=== PATIENT | female | born 1975 | race Caucasian/White ===

== ENCOUNTER → 2016-04-02 | Outpatient (CLI) | payer MEDICARE, MEDICAID | LOC: RAD 12:19 | DX: M25.511 Pain in right shoulder (principal); M75.101 Unspecified rotator cuff tear or rupture of right shoulder, not specified as traumatic; R07.9 Chest pain, unspecified | CPT/HCPCS: 71020 ==

== ENCOUNTER → 2016-04-11 | Day surgery (SDC) | payer MEDICARE, MEDICAID ==
[~2016-04-11] MED LIST: LIDOCAINE 1% INJ-PF (10 MG/ML) 30 ML SDV ONE
== END ==
LOC: RAD 12:20
PROC: BP08ZZZ Plain Radiography of Right Shoulder (ICD-10-PCS; principal; 2016-04-11)
DX: M25.511 Pain in right shoulder (principal); S43.431A Superior glenoid labrum lesion of right shoulder, initial encounter; X58.XXXA Exposure to other specified factors, initial encounter; M75.91 Shoulder lesion, unspecified, right shoulder
CPT/HCPCS: 73222; 73040; 77002; A9576; J3490

== ENCOUNTER → 2016-05-26 | Outpatient (CLI) | payer MEDICARE, MEDICAID ==
[2016-05-26 12:20] LABS: ABSOLUTE EOSINOPHILS # (AUTO) 0.2 10^3/uL (0.0-0.6); ABSOLUTE LYMPHOCYTES (AUTO) 1.5 10^3/uL (0.5-4.7); ABSOLUTE MONOCYTES (AUTO) 0.4 10^3/uL (0.1-1.4); ABSOLUTE NEUT (AUTO) 2.7 10^3/uL (1.7-8.2); BASOPHILS % (AUTO) 0.5 % (0-2); EOSINOPHILS % (AUTO) 3.2 % (0-6); HEMATOCRIT 40.8 % (36.0-47.0); HEMOGLOBIN 13.8 g/dL (12.0-15.5); HGB HCT DIFFERENCE 0.6; LYMPHOCYTES % (AUTO) 32.1 % (13-45); MEAN CORPUSCULAR HEMOGLOBIN 30.3 pg (27.0-33.4); MEAN CORPUSCULAR HGB CONC 33.8 g/dL (32.0-36.0); MEAN CORPUSCULAR VOLUME 90 fl (80-97); MONOCYTES % (AUTO) 9.1 % (3-13); RED BLOOD COUNT 4.55 10^6/uL (3.72-5.28); RED CELL DISTRIBUTION WIDTH 13.2 % (11.5-14.0); SEGMENTED NEUTROPHILS % (AUTO) 55.1 % (42-78); WHITE BLOOD COUNT 4.8 10^3/uL (4.0-10.5)
[2016-05-26 12:35] LABS: APPEARANCE,URINE CLEAR; BILIRUBIN,URINE NEGATIVE (NEGATIVE); GLUCOSE, URINE NEGATIVE (NEGATIVE); KETONES,URINE NEGATIVE (NEGATIVE); LEUKOCYTE ESTERASE,URINE NEGATIVE (NEGATIVE); NITRITE,URINE NEGATIVE (NEGATIVE); PROTEIN,URINE NEGATIVE (NEGATIVE); URINE SPECIFIC GRAVITY 1.023; UROBILINOGEN,URINE NEGATIVE mg/dL (<2.0)
[2016-05-26 12:46] LABS: ALANINE AMINOTRANSFERASE 19 U/L (9-52); ALBUMIN 4.3 g/dL (3.5-5.0); ALKALINE PHOSPHATASE 66 U/L (38-126); ANION GAP 12 (5-19); ASPARTATE AMINO TRANSFERASE 16 U/L (14-36); BILIRUBIN,TOTAL 0.9 mg/dL (0.2-1.3); BLOOD UREA NITROGEN 13 mg/dL (7-20); CALCIUM 9.3 mg/dL (8.4-10.2); CARBON DIOXIDE 26 mmol/L (22-30); CHLORIDE 102 mmol/L (98-107); CHOLESTEROL 177.87 mg/dL (0-200); CREATININE RESULT 0.61 mg/dL (0.52-1.25); Direct HDL 80 mg/dL (>40); GLUCOSE 91 mg/dL (75-110); POTASSIUM 4.2 mmol/L (3.6-5.0); SODIUM 139.5 mmol/L (137-145); TRIGLYCERIDES 55 mg/dL (<150)
[2016-05-26 12:56] LABS: DIRECT LDL 82 mg/dL (<100)
== END ==
LOC: OD 10:35
DX: M32.9 Systemic lupus erythematosus, unspecified (principal); L11.1 Transient acantholytic dermatosis [Grover]; R53.82 Chronic fatigue, unspecified; E53.9 Vitamin B deficiency, unspecified; E55.9 Vitamin D deficiency, unspecified; Z79.899 Other long term (current) drug therapy; Z91.018 Allergy to other foods
CPT/HCPCS: 36415; 80053; 80061; 81001; 82306; 82607; 83036; 84207; 84252; 84425; 84443; 84591; 85025

== ENCOUNTER → 2016-05-29 | Outpatient (CLI) | payer MEDICARE, MEDICAID | LOC: RAD 09:03 | DX: M32.9 Systemic lupus erythematosus, unspecified (principal); M50.20 Other cervical disc displacement, unspecified cervical region | CPT/HCPCS: 72156; A9577 ==

== ENCOUNTER → 2016-06-06 | Outpatient (CLI) | payer MEDICARE, MEDICAID | LOC: OD 11:20 | DX: D3A.090 Benign carcinoid tumor of the bronchus and lung (principal); R23.2 Flushing | CPT/HCPCS: 36415; 71020; 82382; 82570; 83497; 83520; 84443 ==

== ENCOUNTER → 2016-07-02 | Outpatient (CLI) | payer MEDICARE, MEDICAID | LOC: WI 10:50 | DX: M50.20 Other cervical disc displacement, unspecified cervical region (principal); N63 Unspecified lump in breast; Z53.8 Procedure and treatment not carried out for other reasons ==

== ENCOUNTER 2016-07-04 12:20 | Emergency (ER) | payer MEDICARE, MEDICAID ==
[2016-07-04 12:33] VITALS: BP 138/98
--- NOTE | 2016-07-04 12:54 | ER Document Report ---
ED Skin Rash/Insect Bite/Abscs - General Chief Complaint: Itching Stated Complaint: FACIAL ITCHING Time seen by provider: 12:49 Mode of Arrival: Ambulatory Information source: Patient Notes: 40-year-old female presents to ED for facial flushing for several months. She states that her face is been itching for week. Lupus and One-A-Day with lamp to see if she had any fungus on her face. TRAVEL OUTSIDE OF THE [place] IN LAST 30 DAYS: No - HPI Patient complains to provider of: Other - Itching to bilateral sides of face Onset: Last week Onset/Duration: Intermittent Quality of pain: No pain Severity: None Pain Level: Denies Skin Character: Other - Flushing to face Quality of rash: Itchy Identify cause: No - could be from her lupus Exacerbated by: Denies Relieved by: Denies Similar symptoms previously: Yes Recently seen / treated by doctor: Yes - Related Data Allergies/Adverse Reactions: Penicillins Allergy (Verified 01/27/16 11:16) Anaphylaxis Sulfa (Sulfonamide Antibiotics) Allergy (Verified 01/27/16 11:16) sulfamethoxazole [From Septra] Allergy (Verified 01/27/16 11:16) Anaphylaxis trazodone Allergy (Verified 01/27/16 11:16) trimethoprim [From Septra] Allergy (Verified 01/27/16 11:16) Anaphylaxis Past Medical History - General Information source: Patient - Social History Smoking Status: Never Smoker Cigarette use (# per day): No Chew tobacco use (# tins/day): No Smoking Education Provided: No Frequency of alcohol use: Rare Drug Abuse: None Occupation: none Lives with: Family Family History: CAD, Hyperlipidemia, Hypertension Patient has suicidal ideation: No Patient has homicidal ideation: No - Past Medical History Cardiac Medical History: Reports: Hx Hypertension Pulmonary Medical History: Reports: Hx Asthma EENT Medical History: Reports: None Neurological Medical History: Reports: Hx Migraine, Hx Seizures Endocrine Medical History: Reports: Hx Graves' Disease, Other - Lupus Renal/ Medical History: Reports: Hx Ovarian Cysts, Other - Interstitial cystitis Malignancy Medical History: Reports: None GI Medical History: Reports: Hx Irritable Bowel, Hx Colonoscopy, Hx Endoscopy, Other - Multiple episodes of small intestine bacterial overgrowth Musculoskeltal Medical History: Reports Hx Fibromyalgia, Reports Hx Musculoskeletal Deformity - Carpal tunnel "slipped disc" with radiculopathy, Reports Hx Musculoskeletal Trauma Skin Medical History: Reports Hx Cellulitis Psychiatric Medical History: Reports: Hx Anxiety, Hx Attention Deficit Hyperactivity Disorder, Hx Post Traumatic Stress Disorder Traumatic Medical History: Reports: None Infectious Medical History: Reports: None Past Surgical History: Reports: Hx Genitourinary Surgery - Bladder hyperextended due to interstitial cystitis, Hx Gynecologic Surgery - left ovary removed, Hx Orthopedic Surgery - Carpal tunnel surgery today for 7 2016 has had previous surgery on this lee, Hx Urinary Tract Surgery - hyperextention of bladder - Immunizations Immunizations up to date: Yes Hx Diphtheria, Pertussis, Tetanus Vaccination: Yes Review of Systems - Review of Systems Constitutional: No symptoms reported EENT: Other - Itching to face Cardiovascular: No symptoms reported Respiratory: No symptoms reported Gastrointestinal: No symptoms reported Genitourinary: No symptoms reported Female Genitourinary: No symptoms reported Musculoskeletal: No symptoms reported Skin: Other - Itching to face no rash noted Hematologic/Lymphatic: No symptoms reported Neurological/Psychological: No symptoms reported -: Yes All other systems reviewed and negative Physical Exam - Vital signs Vitals: Temp Pulse Resp BP Pulse Ox 98.3 F 86 16 138/98 H 99 07/04/16 12:25 07/04/16 12:25 07/04/16 12:25 07/04/16 12:25 07/04/16 12:25 Interpretation: Normal - General General appearance: Appears well, Alert - HEENT Head: Normocephalic, Atraumatic Eyes: Normal Pupils: PERRL Notes: Itching to face no rash noted, no fungal showing up on the wood lamp that was used as her request. - Respiratory Respiratory status: No respiratory distress Chest status: Nontender Breath sounds: Normal Chest palpation: Normal - Cardiovascular Rhythm: Regular Heart sounds: Normal auscultation Murmur: No - Abdominal Inspection: Normal Distension: No distension Bowel sounds: Normal Tenderness: Nontender Organomegaly: No organomegaly - Back Back: Normal, Nontender - Extremities General upper extremity: Normal inspection, Nontender, Normal color, Normal ROM , Normal temperature General lower extremity: Normal inspection, Nontender, Normal color, Normal ROM , Normal temperature, Normal weight bearing. No: Rubén's sign - Neurological Neuro grossly intact: Yes Cognition: Normal Orientation: AAOx4 M[place]or Coma Scale Eye Opening: Spontaneous [place] Coma Scale Verbal: Oriented [place] Coma Scale Motor: Obeys Commands Mynor Coma Scale Total: 15 Speech: Normal Motor strength normal: LUE, RUE, LLE, RLE Sensory: Normal - Psychological Associated symptoms: Normal affect, Normal mood - Skin Skin Temperature: Warm Skin Moisture: Dry Skin Color: Normal Course - Re-evaluation Re-evalutation: 07/04/16 12:58 Patient was examined with a with life with no signs of any fungal infection so was her chest. Patient encouraged to use Benadryl for the itching and to follow -up with rheumatology and dermatology for her itching to the face. She states the flesh and has been going on for several months and the itching started over a week ago. She has already spoken with her primary doctor who told her to go to dermatology or rheumatology. - Vital Signs Vital signs: Temp Pulse Resp BP Pulse Ox 98.3 F 86 16 138/98 H 99 07/04/16 12:25 07/04/16 12:25 07/04/16 12:25 07/04/16 12:25 07/04/16 12:25 Discharge - Discharge Clinical Impression: Facial twitching, History of lupus Condition: Stable Disposition: HOME, SELF-CARE Additional Instructions: you were seen today for facial itching. The Rico lamp did not show any fungal infection. You have a history of lupus. Take your medications as prescribed for her lupus. Please call your [employer] to schedule follow-up visit for these symptoms. You can also call dermatology to see if you're having any other kind of reaction. Diphenhydramine The use of diphenhydramine (Benadryl) has been recommended to control allergic symptoms. The 25 mg strength is available over- the-counter, as well as the elixir. This antihistamine is used for many symptoms. It's useful for itching, watering eyes and nose, allergic swelling, hives, and insect stings. The medication can be repeated four times daily. Age Elixir (12.5 mg/tsp) 25 mg pill 1 yr 1/4 tsp 2-3 yr 1/2 tsp 4-8 yr 1 tsp 9-14 yr 2 tsp one tab adult 1-2 tabs Antihistamines may cause drowsiness, especially with the first dose. Do not operate machinery or drive while under the effects of the medication. Do not combine the medication with alcohol, or with any other medication without talking to your doctor. FOLLOW-UP CARE: If you have been referred to a physician for follow-up care, call the physician s office for an appointment as you were instructed or within the next two days. If you experience worsening or a significant change in your symptoms, notify the physician immediately or return to the Emergency Department at any time for re-evaluation. Please complete the patient's satisfaction survey if you get one and return. If you do not receive a survey you can go to [facility] website [email or web address] and placed her comments about your very good care. Thank you very much. It was a pleasure be in your medical provider today. Forms: Elevated Blood Pressure
== END 2016-07-04 13:01 | disposition home or self-care (01) ==
LOC: ER 12:20
DX: L29.9 Pruritus, unspecified (principal); R25.3 Fasciculation; I10 Essential (primary) hypertension; J45.909 Unspecified asthma, uncomplicated; Z88.0 Allergy status to penicillin; Z88.2 Allergy status to sulfonamides
CPT/HCPCS: 99282

== ENCOUNTER 2016-07-10 18:53 | Emergency (ER) | payer MEDICARE, MEDICAID ==
--- NOTE | 2016-07-10 20:16 | ER Document Report ---
ED Skin Rash/Insect Bite/Abscs - General Chief Complaint: Itching Stated Complaint: ITCHY FACE Mode of Arrival: Ambulatory Information source: Patient Notes: 40-year-old female presents to the emergency department complaining of intermittently persistent itching to the face and upper anterior chest for approximately last 3 weeks. Patient reports itching seems to be triggered by an made worse after exposure to sunlight however persists regardless of exposure. States has been evaluated in the emergency department, as well as dermatology and rheumatology but symptoms are persistent. Denies fever, lesions , drainage, swelling, color changes, warmth, or any other systemic symptoms. Cannot recall obvious exposure to allergen. TRAVEL OUTSIDE OF THE [place] IN LAST 30 DAYS: No - HPI Onset/Duration: Intermittent, Persistent Quality of pain: No pain, Other - Itching Severity: Moderate Skin Character: No: Blanching, Bullous, Drainage, Erythema, Lesion, Macules, Papules, Patchy, Petechial, Rash, Scales, Swelling, Tenderness, Thickening, Urticarial, Vesicular Quality of rash: Itchy Similar symptoms previously: Yes Recently seen / treated by doctor: Yes - Related Data Allergies/Adverse Reactions: Penicillins Allergy (Verified 01/27/16 11:16) Anaphylaxis Sulfa (Sulfonamide Antibiotics) Allergy (Verified 01/27/16 11:16) sulfamethoxazole [From Septra] Allergy (Verified 01/27/16 11:16) Anaphylaxis trazodone Allergy (Verified 01/27/16 11:16) trimethoprim [From Septra] Allergy (Verified 01/27/16 11:16) Anaphylaxis Past Medical History - General Information source: Patient - Social History Smoking Status: Never Smoker Chew tobacco use (# tins/day): No Frequency of alcohol use: None Drug Abuse: None Lives with: Family Family History: CAD, Hyperlipidemia, Hypertension - Past Medical History Cardiac Medical History: Reports: Hx Hypertension Pulmonary Medical History: Reports: Hx Asthma Neurological Medical History: Reports: Hx Migraine, Hx Seizures Endocrine Medical History: Reports: Hx Graves' Disease Renal/ Medical History: Reports: Hx Ovarian Cysts, Other - Interstitial cystitis. Denies: Hx Peritoneal Dialysis GI Medical History: Reports: Hx Irritable Bowel, Hx Colonoscopy, Hx Endoscopy Musculoskeltal Medical History: Reports Hx Fibromyalgia, Reports Hx Musculoskeletal Deformity - Carpal tunnel "slipped disc" with radiculopathy, Reports Hx Musculoskeletal Trauma Skin Medical History: Reports Hx Cellulitis Psychiatric Medical History: Reports: Hx Anxiety, Hx Attention Deficit Hyperactivity Disorder, Hx Post Traumatic Stress Disorder Past Surgical History: Reports: Hx Genitourinary Surgery - Bladder hyperextended due to interstitial cystitis, Hx Gynecologic Surgery - left ovary removed, Hx Orthopedic Surgery - Carpal tunnel surgery today for 7 2016 has had previous surgery on this lee, Hx Urinary Tract Surgery - hyperextention of bladder - Immunizations Immunizations up to date: Yes Hx Diphtheria, Pertussis, Tetanus Vaccination: Yes Review of Systems - Review of Systems Constitutional: No symptoms reported EENT: No symptoms reported Cardiovascular: No symptoms reported Respiratory: No symptoms reported Gastrointestinal: No symptoms reported Genitourinary: No symptoms reported Female Genitourinary: No symptoms reported Musculoskeletal: No symptoms reported Skin: See HPI Hematologic/Lymphatic: No symptoms reported Neurological/Psychological: No symptoms reported -: Yes All other systems reviewed and negative Physical Exam - Vital signs Vitals: Temp Pulse Resp BP Pulse Ox 98.5 F 78 18 135/84 H 99 07/10/16 18:55 07/10/16 18:55 07/10/16 18:55 07/10/16 18:55 07/10/16 18:55 - General General appearance: Appears well, Alert In distress: None - HEENT Head: Normocephalic, Atraumatic. No: Abrasions, Castañeda's sign, Ecchymosis, Open wounds, [place]'s eyes, Tenderness, Other Eyes: Normal Conjunctiva: Normal Extraocular movements intact: Yes Eyelashes: Normal Pupils: PERRL Nerve palsy: No Ears: Normal External canal: Normal Tympanic membrane: Normal Sinus: Normal Nasal: Normal Mouth/Lips: Normal Mucous membranes: Normal, Moist Pharynx: Normal. No: Blood in hypopharynx, Erythema, Exudate, Peritonsillar abscess, Post nasal drainage, Retropharyngeal abscess, Tonsillar hypertrophy, Uvular edema, Potential airway comprom., Other Neck: Normal. No: Anterior cervical chain, Posterior cervical chain, Lymphadenopathy, Meningismus, Subcutaneous emphysema - Respiratory Respiratory status: No respiratory distress Chest status: Nontender Breath sounds: Normal Chest palpation: Normal - Cardiovascular Rhythm: Regular Heart sounds: Normal auscultation Murmur: No Pulses: Normal: Radial Normal capillary refill: Yes - Abdominal Inspection: Normal Distension: No distension Bowel sounds: Normal Tenderness: Nontender Organomegaly: No organomegaly - Back Back: Normal, Nontender - Extremities General upper extremity: Normal inspection, Nontender, Normal color, Normal ROM , Normal strength, Normal temperature General lower extremity: Normal inspection, Nontender, Normal color, Normal ROM , Normal strength, Normal temperature, Normal weight bearing - Neurological Neuro grossly intact: Yes Cognition: Normal Orientation: AAOx4 Mynor Coma Scale Eye Opening: Spontaneous [place] Coma Scale Verbal: Oriented [place] Coma Scale Motor: Obeys Commands Mynor Coma Scale Total: 15 Speech: Normal Motor strength normal: LUE, RUE, LLE, RLE Sensory: Normal - Skin Skin Temperature: Warm Skin Moisture: Dry Skin Color: Normal Course - Re-evaluation Re-evalutation: 07/10/16 20:30 Patient hemodynamically stable, in no distress. Patient is very well-appearing with unremarkable physical exam including Rico lamp examination without suggestion of fungal or other significant systemic or dermatologic etiology at this time. Will treat symptomatically and encourage patient to follow-up with dermatology and pcp. Patient appears stable for discharge and agrees with home care, follow-up, and ED return precautions. - Vital Signs Vital signs: Temp Pulse Resp BP Pulse Ox 98.6 F 76 16 132/80 H 99 07/10/16 20:25 07/10/16 20:25 07/10/16 20:25 07/10/16 20:25 07/10/16 20:25 Discharge - Discharge Clinical Impression: Rash and nonspecific skin eruption Condition: Stable Disposition: HOME, SELF-CARE Additional Instructions: Itching Itching can be a symptom of both skin problems or internal diseases. Most of the time, itching is simply a nuisance, and doesn't mean there's any serious underlying problem. If there are no symptoms of an ongoing medical condition, we simply prescribe anti-itch medicine to relieve symptoms. Itching can be due to skin allergic reactions such as poison oak, poison geo, dermatitis, or jewelry allergy. It can be caused by dry skin, or skin that' s been stretched by , weight gain, or water retention. It can be caused by skin parasites such as scabies, or by bug bites. Itching can be caused by internal allergy, such as food allergy, or medication allergy, or intestinal parasites. It can accompany liver disease. Apply a non-perfumed ointment like Vaseline, Eucerin lotion, Nutraderm, or Lubriderm if your skin is dry. Apply frequently, especially after bathing. Benadryl, Hydroxyzine, Doxepin and other anti-itch medicines can help control the urge to scratch. Hydrocortisone cream, or a prescription steroid cream or ointment can help reduce inflammation. Avoid hot baths or showers. Use as little soap as possible while bathing. Don't scrub your skin unless the doctor has specifically told you to do this. Call the doctor or return if there are signs of infection, fever, pain, or if symptoms become severe. Acid-Suppressing Medication You may try taking [id number] medicine which reduces the stomach's secretion of acid. Examples include These medications sometimes are used for allergic reactions because they have anti-histaminic effects and relieve the rash and itching of the reaction. There are usually no side effects from this medication. But, in rare cases and particularly in the elderly, serious problems can occur. Contact your doctor if there is fever, rash, hallucinations, confusion, or unusual bruising. Contact your doctor at once if you develop lightheadedness, black or bloody stool, or bloody vomitus. Follow-up with your primary care provider and dermatology this week. Return to the Emergency Department for any worsening symptoms or concerns. Prescriptions: Hydroxyzine HCl [Atarax 25 mg Tablet] 1 tab PO BIDP PRN #10 tablet PRN Reason: Forms: Elevated Blood Pressure Referrals: NIXON WONG DO [ACTIVE STAFF] - Follow up in 3-5 days
[2016-07-10 20:32] VITALS: BP 132/80
== END 2016-07-10 20:25 | disposition home or self-care (01) ==
LOC: ER 18:53
DX: L29.9 Pruritus, unspecified (principal); R21 Rash and other nonspecific skin eruption; I10 Essential (primary) hypertension; Z88.0 Allergy status to penicillin; Z88.2 Allergy status to sulfonamides; Z88.3 Allergy status to other anti-infective agents
CPT/HCPCS: 99282

== ENCOUNTER 2016-11-10 11:42 | Day surgery (SDC) | payer MEDICARE, MEDICAID ==
[2016-11-10] MEDS ORDERED: DIPHENHYDRAMINE HCL 50 MG/ML VIAL ONE (12:09)
[2016-11-10] MEDS ORDERED: NALOXONE HCL INJ/PF 0.4 MG/1 ML SDV ONE (12:09)
[2016-11-10] MEDS ORDERED: ONDANSETRON HCL INJ/PF 4 MG/2 ML SDV ONE (12:09)
[2016-11-10] MEDS ORDERED: GLUCAGON,HUMAN RECOMB 1 MG INJ ONE (12:10)
[2016-11-10] MEDS ORDERED: MIDAZOLAM 2 MG/2 ML INJ ONE (12:10)
[2016-11-10] MEDS ORDERED: FENTANYL CITRATE INJ/PF 100 MCG/2 ML AMPUL ONE (12:10)
[2016-11-10] MEDS ORDERED: FLUMAZENIL INJ 0.5 MG/5 ML VIAL IV ONE (12:10)
[2016-11-10] MEDS ORDERED: EPINEPHRINE INJ 1 MG/10 ML DISP.SYRIN ONE (12:10)
[2016-11-10] MEDS: MIDAZOLAM 2 MG/2 ML INJ ONE ×2 (12:50→12:54)
--- NOTE | 2016-11-10 13:38 | Operative Report ---
Operative Report DATE OF SURGERY: 11/10/16 Operative Report: The risks benefits and alternatives of the procedure explained to the patient in detail and informed consent is obtained.A GIF Olympus video scope was inserted into the patient's mouth and hypopharynx, the esophagus is identified intubated and insufflated, the scope was then advanced through the esophagus stomach and duodenum, retroflexion maneuver is done, the esophagus stomach and first and second portions of the duodenum examined PREOPERATIVE DIAGNOSIS: Dyspepsia POSTOPERATIVE DIAGNOSIS: Gastritis status post biopsy rule out Helicobacter pylori. Duodenitis status post biopsy rule out celiac sprue. Up to the second portion of the duodenum there are no diverticula noted OPERATION: EGD with biopsy SURGEON: THOMAS BUTLER ANESTHESIA: Moderate Sedation - 6 mg of Versed, 75 mcg of fentanyl. Conscious sedation monitoring time 30 minutes. TISSUE REMOVED OR ALTERED: Gastric and duodenal mucosal specimens obtained COMPLICATIONS: None. ESTIMATED BLOOD LOSS: None. INTRAOPERATIVE FINDINGS: As described above. PROCEDURE: Patient tolerated the procedure well. No immediate postprocedure complications are noted. Patient discharged in good condition. Discharge date 11/10/2016. Discharge diet: Regular. Discharge activity: Regular. 2-3 week follow-up to discuss findings. Patient is instructed to call the office or proceed to the emergency room should there be any further problems or questions. We will await biopsies.
[2016-11-10 14:17] VITALS: BP 119/75
== END 2016-11-10 14:10 | disposition home or self-care (01) ==
LOC: END 11:42
PROVIDERS: ATTEND Internal Medicine Gastroenterology
PROC: 0DB68ZX Excision of Stomach, Via Natural or Artificial Opening Endoscopic, Diagnostic (ICD-10-PCS; 2016-11-10)
PROC: 0DB98ZX Excision of Duodenum, Via Natural or Artificial Opening Endoscopic, Diagnostic (ICD-10-PCS; principal; 2016-11-10 15:00)
DX: K57.30 Diverticulosis of large intestine without perforation or abscess without bleeding (principal); K21.9 Gastro-esophageal reflux disease without esophagitis; J45.909 Unspecified asthma, uncomplicated; D64.9 Anemia, unspecified; M32.9 Systemic lupus erythematosus, unspecified; Z79.899 Other long term (current) drug therapy
CPT/HCPCS: 43239; 88305 ×2; J2250; J3010; J1610; J0171; J1200; J2310; J2405; J3490

== ENCOUNTER 2016-12-30 16:02 | Emergency (ER) | payer OTHER, MEDICARE, MEDICAID ==
[2016-12-30 16:09] VITALS: BP 125/95
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
== END 2016-12-30 17:20 | disposition home or self-care (01) ==
LOC: ER 16:02
DX: S16.1XXA Strain of muscle, fascia and tendon at neck level, initial encounter (principal); V43.52XA Car driver injured in collision with other type car in traffic accident, initial encounter; E04.1 Nontoxic single thyroid nodule; M54.2 Cervicalgia; R51 Headache; J44.9 Chronic obstructive pulmonary disease, unspecified
CPT/HCPCS: 72125; 99284